=== PATIENT | male | born 1975 ===

== ENCOUNTER 2017-06-27 06:38 | Day surgery (SDC) | payer OTHER ==
[2017-06-27 07:34] VITALS: BMI 20.3
[2017-06-27] MEDS ORDERED: Midazolam 2 MG/2 ML VIAL ONE (08:57)
[2017-06-27] MEDS ORDERED: Propofol 10 mg/ml Inj (20 ML) ONE (08:57)
--- NOTE | 2017-06-27 09:03 | CP.SDSHP ---
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 Evaluated Today:Candidate for Anesthesia & Procedure: Yes - Date & Time Date: 06/27/17 Time: 09:03 Short Stay Discharge - Short Stay Discharge Admitting Diagnosis/Reason for Visit: DYSPEPSIA Disposition: HOME/ ROUTINE
[2017-06-27 10:13] VITALS: TEMP 99.1
[2017-06-27 10:15] VITALS: RESP 12; O2SAT 100
[2017-06-27 10:16] VITALS: BP 98/50; PULSE 66
[2017-06-27 11:48] LABS: HEMATOCRIT 17.1 % (35.0-51.0); MEAN CELL VOLUME 68.2 fL (80.0-94.0); MEAN CORPUSCULAR HEMOGLOBIN 22.2 pg (27.0-31.0); MEAN CORPUSCULAR HGB CONC 32.5 g/dL (33.0-37.0); MEAN PLATELET VOLUME 10.6 fL (7.2-11.7); WHITE BLOOD COUNT 15.4 K/uL (4.8-10.8)
[2017-06-27 11:50] LABS: CHLORIDE 107 mmol/L (98-107); POTASSIUM 3.4 mmol/L (3.6-5.2); SODIUM 146 mmol/L (132-148)
[2017-06-27 11:52] LABS: ALB/GLOB RATIO 1.1 (1.0-2.1); AST/SGOT 98 U/L (17-59); BILIRUBIN,DIRECT 1.9 mg/dL (0.0-0.4); BILIRUBIN,TOTAL 8.5 mg/dL (0.2-1.3); CARBON DIOXIDE 21 mmol/L (22-30); GFR AFRICAN-AMERICAN > 60; TOTAL PROTEIN 8.2 g/dL (6.3-8.3)
[2017-06-27 11:53] LABS: ALKALINE PHOSPHATASE 191 U/L (38-126); ALT/SGPT 43 U/L (21-72); BLOOD UREA NITROGEN 9 mg/dL (9-20); CALCIUM 9.4 mg/dl (8.6-10.4); GLUCOSE,RANDOM 89 mg/dL (75-110)
[2017-06-27 13:10] LABS: BASO # 0.1 K/uL (0.0-0.2); EOS # 1.8 K/uL (0.0-0.7); LYMPH # 5.4 K/uL (1.0-4.3); MONO # 1.1 K/uL (0.0-0.8)
== END 2017-06-27 10:24 | disposition home or self-care (01) ==
LOC: C.ENDO 06:38
PROVIDERS: ATTEND Internal Medicine Gastroenterology
DX: K29.50 Unspecified chronic gastritis without bleeding (principal); K26.9 Duodenal ulcer, unspecified as acute or chronic, without hemorrhage or perforation; K44.9 Diaphragmatic hernia without obstruction or gangrene; R68.81 Early satiety; K31.84 Gastroparesis; K59.00 Constipation, unspecified; R10.13 Epigastric pain
CPT/HCPCS: 36415; 43239; 80053; 82248; 82977; 85025; 86704; 86706; 86803; 87340; 88305; 88312; 88313; 88342; J2250; J2704